=== PATIENT | male | born 1940 | race Asian ===

== ENCOUNTER 2023-08-18 15:20 | Inpatient (IN) | payer MEDICARE, OTHER ==
[~2023-08-18] VITALS: Ht 167.6 cm; Wt 51.9 kg
[2023-08-18] MEDS ORDERED: ALBU0.63 IH (15:44)
[2023-08-18] MEDS ORDERED: ATOR10TA PO (15:44)
[2023-08-18] MEDS ORDERED: AMIO200T5 PO (15:44)
[2023-08-18] MEDS ORDERED: CARV3.12 PO (15:44)
[2023-08-18] MEDS ORDERED: FURO-152 PO (15:44)
[2023-08-18] MEDS ORDERED: APIX5TAB4 PO (15:44)
[2023-08-18] MEDS ORDERED: CHOLECALCIFEROL 1,000 UNIT TABLET ONE (16:12)
[2023-08-18] MEDS ORDERED: CEFTRIAXONE /D5W 50ML IVPB **ER PYXIS IV ONE (16:12)
[2023-08-18 16:23] LABS: EOSINOPHILS # (AUTO) 2.9 K/uL (0.0-0.7); HEMATOCRIT 42.3 % (36.7-47.1); HEMOGLOBIN 13.4 g/dL (12.5-16.3); LYMPHOCYTES # (AUTO) 1.1 K/uL (0.8-4.8); LYMPHOCYTES % (AUTO) 10.6 % (20.5-51.5); MEAN CORPUSCULAR HEMOGLOBIN 23.4 uug (23.8-33.4); MEAN CORPUSCULAR HGB CONC 32 g/dL (32.5-36.3); MEAN CORPUSCULAR VOLUME 74.2 fL (73.0-96.2); MONOCYTES # (AUTO) 0.1 K/uL (0.1-1.30); MONOCYTES % (AUTO) 0.9 % (0.0-11.0); NEUTROPHILS # (AUTO) 6.1 K/uL (1.8-8.9); NEUTROPHILS % (AUTO) 59.8 % (38.5-71.5); PLATELET COUNT (AUTO) 125 K/uL (152-348); RED CELL DISTRIBUTION WIDTH 14.2 % (12.1-16.2); WHITE BLOOD COUNT (AUTO) 10.2 K/uL (3.6-10.2)
[2023-08-18] MEDS: CHOLECALCIFEROL 1,000 UNIT TABLET PO SCH (16:23)
[2023-08-18] MEDS: IV NORMAL SALINE 1000 ML BAG IV ONE (16:24)
[2023-08-18] MEDS: CEFTRIAXONE 1 G in IV DEXTROSE 5% 50 ML IV ONE (16:24)
[2023-08-18 16:31] LABS: CALCIUM 8.4 mg/dL (8.5-10.1); CARBON DIOXIDE 20 mmol/L (21-32); CHLORIDE 103 mmol/L (98-107); CREATININE 1.8 mg/dL (0.6-1.3); GLUCOSE 132 mg/dL (74-106); SODIUM SERUM 137 mmol/L (136-145); UREA NITROGEN, BLOOD 38 mg/dL (7-18)
[2023-08-18 16:32] LABS: POTASSIUM 4.6 mmol/L (3.5-5.1)
[2023-08-18 16:44] LABS: ALANINE AMINOTRANSFERASE 74 U/L (16-63); ALBUMIN 3.2 g/dL (3.4-5.0); ALKALINE PHOSPHATASE 78 U/L (50-136); ASPARTATE AMINOTRANSFERASE 132 U/L (15-37); BILIRUBIN,DIRECT 0.7 mg/dL (0.0-0.2); BILIRUBIN,TOTAL 1.9 mg/dL (0.2-1.0); NT-PRO BNP 12198 pg/mL (0-125); TOTAL PROTEIN, SERUM 8.4 g/dL (6.4-8.2)
[2023-08-18 16:52] LABS: DIFFERENTIAL COMMENT 1; EOSINOPHILS % (AUTO) 28.7 % (0.0-7.0)
[2023-08-18 16:54] LABS: LACTIC ACID 2.1 mmol/L (0.4-2.0)
[2023-08-18] MEDS ORDERED: ASPIRIN 81 MG TAB.CHEW ONE (17:41)
[2023-08-18] MEDS: ASPIRIN 81 MG TAB.CHEW PO ONE (18:03)
[2023-08-18 18:10] LABS: *BILIRUBIN,URIN NEGATIVE (NEGATIVE); *BLOOD, URINE 2+ (NEGATIVE); *CLARITY,URINE CLEAR (CLEAR); *COLOR,URINE YELLOW (YELLOW); *KETONES,URINE NEGATIVE (NEGATIVE); *PROTEIN,URINE 2+ (NEGATIVE); LEUKOCYTE ESTERASE ,URINE NEGATIVE (NEGATIVE); NITRITE, URINE NEGATIVE (NEGATIVE); PH,URINE 5.5 (5.0-8.0); UGLUCOSE NEGATIVE (NEGATIVE)
[2023-08-18 18:14] LABS: WBC,URINE 0-3 /HPF (0-3)
[2023-08-18] MEDS ORDERED: ONDANSETRON 4 MG/2 ML VIAL IV PRN (18:15)
[2023-08-18] MEDS ORDERED: REMEDY ESSENTIAL ZINC PASTE 113 GM TP PRN (18:15)
[2023-08-18] MEDS ORDERED: AZITHROMYCIN 500MG/ D5W 250ML IVPB **ER PYXIS ONLY IV ONE (18:17)
[2023-08-18] MEDS: AZITHROMYCIN IV 500 MG in IV DEXTROSE 5% 250 ML IV ONE (18:34)
[2023-08-18] MEDS: IV NS 1000 ML 1,000 ML IV PRN (22:45)
[2023-08-18] MEDS: PANTOPRAZOLE SODIUM 40 MG VIAL IV SCH (22:46)
[2023-08-18] MEDS: ENOXAPARIN SODIUM 30 MG/0.3 ML DISP.SYRIN SQ SCH (22:46)
[2023-08-18 22:53] VITALS: BP 106/55; TEMP 97.4; O2SAT 96
[2023-08-19] VITALS: BP 121/62; TEMP 98.1; O2SAT 95
[2023-08-19] MEDS: ACETAMINOPHEN 325 MG TABLET PO PRN (03:53)
[2023-08-19 04:16] VITALS: BP 105/56; TEMP 99.4; O2SAT 95
[2023-08-19 07:08] LABS: BASOPHILS % (AUTO) 0.2 % (0.0-2.0); HEMOGLOBIN 12.6 g/dL (12.5-16.3); LYMPHOCYTES # (AUTO) 0.8 K/uL (0.8-4.8); LYMPHOCYTES % (AUTO) 11.5 % (20.5-51.5); MEAN CORPUSCULAR HEMOGLOBIN 23.9 uug (23.8-33.4); MEAN CORPUSCULAR HGB CONC 32 g/dL (32.5-36.3); MEAN CORPUSCULAR VOLUME 74.3 fL (73.0-96.2); MONOCYTES # (AUTO) 0.6 K/uL (0.1-1.30); NEUTROPHILS # (AUTO) 5.7 K/uL (1.8-8.9); NEUTROPHILS % (AUTO) 79.3 % (38.5-71.5); PLATELET COUNT (AUTO) 116 K/uL (152-348); RED BLOOD CELL COUNT(AUTO) 5.25 MIL/uL (4.06-5.63); RED CELL DISTRIBUTION WIDTH 14.2 % (12.1-16.2); WHITE BLOOD COUNT (AUTO) 7.2 K/uL (3.6-10.2)
[2023-08-19 07:12] LABS: DIFFERENTIAL COMMENT 1
[2023-08-19 07:53] VITALS: BP 99/57; TEMP 98.2; O2SAT 96
[2023-08-19] MEDS: ASPIRIN 81 MG TAB.CHEW PO SCH (08:30)
[2023-08-19 08:50] LABS: ALANINE AMINOTRANSFERASE 71 U/L (16-63); ALBUMIN 2.7 g/dL (3.4-5.0); ALKALINE PHOSPHATASE 63 U/L (50-136); ASPARTATE AMINOTRANSFERASE 118 U/L (15-37); CALCIUM 8.1 mg/dL (8.5-10.1); CARBON DIOXIDE 21 mmol/L (21-32); CHLORIDE 110 mmol/L (98-107); CREATININE 1.6 mg/dL (0.6-1.3); GLUCOSE 95 mg/dL (74-106); NT-PRO BNP 10864 pg/mL (0-125); POTASSIUM 3.6 mmol/L (3.5-5.1); SODIUM SERUM 144 mmol/L (136-145); TOTAL PROTEIN, SERUM 7.2 g/dL (6.4-8.2); UREA NITROGEN, BLOOD 34 mg/dL (7-18)
[2023-08-19 12:00] VITALS: BP 94/48; TEMP 97.6; O2SAT 2
[2023-08-19] MEDS: BUMETANIDE 1 MG/4 ML VIAL IV ONE (14:03)
[2023-08-19] MEDS: CEFTRIAXONE 1 G in IV DEXTROSE 5% 50 ML IV SCH (15:54)
[2023-08-19 16:00] VITALS: BP 100/56; TEMP 99.2; O2SAT 93
[2023-08-19] MEDS: AZITHROMYCIN IV 500 MG in IV DEXTROSE 5% 250 ML IV SCH (16:51)
[2023-08-19 18:15] LABS: *BILIRUBIN,URIN NEGATIVE (NEGATIVE); *BLOOD, URINE 1+ (NEGATIVE); *CLARITY,URINE CLEAR (CLEAR); *COLOR,URINE YELLOW (YELLOW); *KETONES,URINE NEGATIVE (NEGATIVE); *PROTEIN,URINE NEGATIVE (NEGATIVE); *UROBILINOGEN,URINE 0.2 E.U./dl (NORMAL); LEUKOCYTE ESTERASE ,URINE NEGATIVE (NEGATIVE); NITRITE, URINE NEGATIVE (NEGATIVE); PH,URINE 5.5 (5.0-8.0); UGLUCOSE NEGATIVE (NEGATIVE)
[2023-08-19 18:25] LABS: WBC,URINE 0-3 /HPF (0-3)
[2023-08-19 18:28] LABS: *SODIUM RNDM,URINE 28 mmol/L (40-220); *URINE TOTAL PROTEIN RANDOM < 6.0 mg/dL (<150/24HR)
[2023-08-19 18:29] LABS: *CREATININE,URINE < 13.0 mg/dL (30-125)
[2023-08-19 20:00] VITALS: BP 106/55; TEMP 97.7; O2SAT 95
[2023-08-20] VITALS (8 sets, daily range): BP systolic 94–117; BP diastolic 50–58; TEMP 97.5–98.1; O2SAT 94–99
[2023-08-20] MEDS: PANTOPRAZOLE SODIUM 40 MG TABLET.DR PO SCH (06:08)
[2023-08-20 07:37] LABS: BASOPHILS % (AUTO) 0.5 % (0.0-2.0); EOSINOPHILS % (AUTO) 0.4 % (0.0-7.0); HEMATOCRIT 38.6 % (36.7-47.1); HEMOGLOBIN 12.6 g/dL (12.5-16.3); LYMPHOCYTES # (AUTO) 0.9 K/uL (0.8-4.8); LYMPHOCYTES % (AUTO) 17.9 % (20.5-51.5); MEAN CORPUSCULAR HEMOGLOBIN 23.9 uug (23.8-33.4); MEAN CORPUSCULAR HGB CONC 33 g/dL (32.5-36.3); MEAN CORPUSCULAR VOLUME 73.4 fL (73.0-96.2); MONOCYTES # (AUTO) 0.7 K/uL (0.1-1.30); MONOCYTES % (AUTO) 12.8 % (0.0-11.0); NEUTROPHILS # (AUTO) 3.6 K/uL (1.8-8.9); NEUTROPHILS % (AUTO) 68.4 % (38.5-71.5); PLATELET COUNT (AUTO) 107 K/uL (152-348); RED BLOOD CELL COUNT(AUTO) 5.26 MIL/uL (4.06-5.63); RED CELL DISTRIBUTION WIDTH 14.4 % (12.1-16.2); WHITE BLOOD COUNT (AUTO) 5.3 K/uL (3.6-10.2)
[2023-08-20 07:42] LABS: DIFFERENTIAL COMMENT 1
[2023-08-20 07:50] LABS: ALANINE AMINOTRANSFERASE 64 U/L (16-63); ALBUMIN 2.4 g/dL (3.4-5.0); ALKALINE PHOSPHATASE 59 U/L (50-136); ASPARTATE AMINOTRANSFERASE 99 U/L (15-37); BILIRUBIN,TOTAL 0.8 mg/dL (0.2-1.0); CALCIUM 7.6 mg/dL (8.5-10.1); CARBON DIOXIDE 24 mmol/L (21-32); CHLORIDE 107 mmol/L (98-107); CREATINE KINASE, TOTAL 650 U/L (39-308); CREATININE 1.6 mg/dL (0.6-1.3); GLUCOSE 110 mg/dL (74-106); MAGNESIUM 2.3 mg/dL (1.8-2.4); PHOSPHOROUS 2.8 mg/dL (2.5-4.9); POTASSIUM 2.9 mmol/L (3.5-5.1); SODIUM SERUM 142 mmol/L (136-145); TOTAL PROTEIN, SERUM 6.7 g/dL (6.4-8.2); UREA NITROGEN, BLOOD 39 mg/dL (7-18)
[2023-08-20] MEDS: ENSURE ENLIVE (VAN) 240 ML LIQUID PO SCH (09:16)
[2023-08-20 10:42] LABS: EOSINOPHILS % (MANUAL) 1 % (0-8); LYMPHOCYTES % (MANUAL) 20 % (20-40); MONOCYTES % (MANUAL) 11 % (2-10); NEUTROPHILS % (MANUAL) 68 % (42-75); PLATELET ESTIMATE DECREASED
[2023-08-20 10:43] LABS: ANISOCYTOSIS 1+; OVALOCYTES 1+
[2023-08-20] MEDS: POTASSIUM CHLORIDE 50 ML IV SCH (12:21)
[2023-08-21] VITALS (7 sets, daily range): BP systolic 115–140; BP diastolic 60–73; TEMP 97.4–97.9; O2SAT 94–100
[2023-08-21 08:06] LABS: PTH, INTACT 29 pg/mL (15-65)
[2023-08-21 08:25] LABS: BASOPHILS % (AUTO) 0.6 % (0.0-2.0); EOSINOPHILS # (AUTO) 0.1 K/uL (0.0-0.7); EOSINOPHILS % (AUTO) 1.4 % (0.0-7.0); HEMATOCRIT 36.4 % (36.7-47.1); HEMOGLOBIN 11.8 g/dL (12.5-16.3); LYMPHOCYTES # (AUTO) 1.1 K/uL (0.8-4.8); LYMPHOCYTES % (AUTO) 21.4 % (20.5-51.5); MEAN CORPUSCULAR HEMOGLOBIN 23.8 uug (23.8-33.4); MEAN CORPUSCULAR HGB CONC 32 g/dL (32.5-36.3); MEAN CORPUSCULAR VOLUME 73.7 fL (73.0-96.2); MONOCYTES # (AUTO) 0.6 K/uL (0.1-1.30); MONOCYTES % (AUTO) 11.9 % (0.0-11.0); NEUTROPHILS # (AUTO) 3.4 K/uL (1.8-8.9); NEUTROPHILS % (AUTO) 64.7 % (38.5-71.5); PLATELET COUNT (AUTO) 107 K/uL (152-348); RED BLOOD CELL COUNT(AUTO) 4.93 MIL/uL (4.06-5.63); RED CELL DISTRIBUTION WIDTH 14.2 % (12.1-16.2); WHITE BLOOD COUNT (AUTO) 5.2 K/uL (3.6-10.2)
[2023-08-21 08:26] LABS: CALCIUM 7.7 mg/dL (8.5-10.1); CREATININE 1.1 mg/dL (0.6-1.3); POTASSIUM 3.5 mmol/L (3.5-5.1)
[2023-08-21 08:34] LABS: ALBUMIN 2.3 g/dL (3.4-5.0); BILIRUBIN,TOTAL 0.5 mg/dL (0.2-1.0); MAGNESIUM 2.2 mg/dL (1.8-2.4); TOTAL PROTEIN, SERUM 6.4 g/dL (6.4-8.2)
[2023-08-21] MEDS: POTASSIUM CHLORIDE 20 MEQ POWDER PACKET GT ONE (09:05)
[2023-08-21] MEDS ORDERED: BISACODYL 10 MG SUPP.RECT RC PRN (10:30)
[2023-08-21] MEDS: LACTULOSE 20 G/30 ML LIQUID UDC PO ONE (11:20)
[2023-08-21 12:06] LABS: A/G RATIO 0.7 (0.7-1.7); ALBUMIN 2.4 g/dL (2.9-4.4); ALPHA-1-GLOBULIN 0.4 g/dL (0.0-0.4); ALPHA-2-GLOBULIN 0.9 g/dL (0.4-1.0); BETA GLOBULIN 0.8 g/dL (0.7-1.3); GAMMA GLOBULIN 1.3 g/dL (0.4-1.8); GLOBULIN, TOTAL 3.4 g/dL (2.2-3.9); M-SPIKE Not Observed g/dL (Not Observed)
[2023-08-22 01:27] VITALS: O2SAT 97
[2023-08-22 06:00] VITALS: BP_SYST 138; TEMP 97.6; O2SAT 96
[2023-08-22 08:00] VITALS: BP 142/65; TEMP 98.4; O2SAT 98
[2023-08-22 11:49] VITALS: BP 137/69; TEMP 97.6; O2SAT 96
[2023-08-22] MEDS: QUETIAPINE FUMARATE 25 MG TABLET PO PRN (11:58)
[2023-08-22 12:49] VITALS: O2SAT 97
[2023-08-22] MEDS: DOXYCYCLINE HYCLATE 100 MG TABLET PO SCH (12:53)
[2023-08-22 16:10] VITALS: BP 162/77; TEMP 97.5; O2SAT 97
[2023-08-22] MEDS: QUETIAPINE FUMARATE 25 MG TABLET PO SCH (23:23)
[2023-08-23 05:05] VITALS: O2SAT 97
[2023-08-23 05:40] VITALS: BP 141/63; TEMP 97.6; O2SAT 97
[2023-08-23 06:28] LABS: BASOPHILS # (AUTO) 0.1 K/UL (0.0-0.2); BASOPHILS % (AUTO) 0.9 % (0.0-2.0); EOSINOPHILS # (AUTO) 0.1 K/uL (0.0-0.7); EOSINOPHILS % (AUTO) 1.3 % (0.0-7.0); HEMATOCRIT 34.7 % (36.7-47.1); HEMOGLOBIN 11.5 g/dL (12.5-16.3); LYMPHOCYTES # (AUTO) 1.1 K/uL (0.8-4.8); LYMPHOCYTES % (AUTO) 18.1 % (20.5-51.5); MEAN CORPUSCULAR HGB CONC 33 g/dL (32.5-36.3); MEAN CORPUSCULAR VOLUME 72.8 fL (73.0-96.2); MONOCYTES # (AUTO) 0.7 K/uL (0.1-1.30); MONOCYTES % (AUTO) 11.6 % (0.0-11.0); NEUTROPHILS # (AUTO) 4.1 K/uL (1.8-8.9); NEUTROPHILS % (AUTO) 68.1 % (38.5-71.5); PLATELET COUNT (AUTO) 154 K/uL (152-348); RED BLOOD CELL COUNT(AUTO) 4.77 MIL/uL (4.06-5.63); RED CELL DISTRIBUTION WIDTH 14.3 % (12.1-16.2)
[2023-08-23 06:46] LABS: DIFFERENTIAL COMMENT 1
[2023-08-23 07:03] LABS: CALCIUM 8.1 mg/dL (8.5-10.1); MAGNESIUM 2.2 mg/dL (1.8-2.4); PHOSPHOROUS 2.7 mg/dL (2.5-4.9); POTASSIUM 3.3 mmol/L (3.5-5.1)
[2023-08-23] MEDS ORDERED: POTASSIUM CHLORIDE 50 ML IV SCH (07:45)
[2023-08-23 08:00] VITALS: BP 157/66; TEMP 97.2; O2SAT 97
[2023-08-23] MEDS: POTASSIUM CHLORIDE 20 MEQ POWDER PACKET GT ONE (08:03)
[2023-08-23] MEDS: POTASSIUM CHLORIDE 10 MEQ, LIDOCAINE-MPF 1% 1 ML in IV DEXTROSE 5% 100 ML IV SCH (08:39)
[2023-08-23] MEDS ORDERED: QUET50TA PO (09:28)
[2023-08-23] MEDS ORDERED: CEFT1VIA15 IV (09:28)
[2023-08-23] MEDS ORDERED: DOXY-326 PO (09:28)
[2023-08-23] MEDS ORDERED: LORAZEPAM 1 MG TABLET PO ONE (09:30)
[2023-08-23 09:44] LABS: LYMPHOCYTES % (MANUAL) 18 % (20-40); MONOCYTES % (MANUAL) 10 % (2-10); NEUTROPHILS % (MANUAL) 72 % (42-75)
[2023-08-23 09:45] LABS: ANISOCYTOSIS 1+; PLATELET ESTIMATE ADEQUATE
[2023-08-23 09:46] LABS: HYPOCHROMASIA 1+; OVALOCYTES 1+
[2023-08-23 12:01] VITALS: BP 102/50; TEMP 97.2; O2SAT 97
[2023-08-23 16:00] VITALS: BP 116/68; TEMP 97.6; O2SAT 97
== END 2023-08-23 16:45 | DRG 682 ==
LOC: ER 15:21 → TELE3 22:03 → MEDSURG3 08-20 09:09
PROVIDERS: ADMIT Internal Medicine; ATTEND Nurse Practitioner Acute Care
DX: N17.9 Acute kidney failure, unspecified (principal); G93.41 Metabolic encephalopathy; J15.9 Unspecified bacterial pneumonia; I21.A1 Myocardial infarction type 2; I50.43 Acute on chronic combined systolic (congestive) and diastolic (congestive) heart failure; E87.20 Acidosis, unspecified; J44.0 Chronic obstructive pulmonary disease with (acute) lower respiratory infection; I42.9 Cardiomyopathy, unspecified; E46 Unspecified protein-calorie malnutrition; Z68.1 Body mass index [BMI] 19.9 or less, adult; R64 Cachexia; E87.6 Hypokalemia; F29 Unspecified psychosis not due to a substance or known physiological condition; E86.0 Dehydration; I11.0 Hypertensive heart disease with heart failure; E83.51 Hypocalcemia; E78.5 Hyperlipidemia, unspecified; Z95.0 Presence of cardiac pacemaker; Z79.899 Other long term (current) drug therapy; Z79.01 Long term (current) use of anticoagulants; K59.00 Constipation, unspecified; D69.6 Thrombocytopenia, unspecified; E11.9 Type 2 diabetes mellitus without complications; I48.91 Unspecified atrial fibrillation; E86.1 Hypovolemia; R30.0 Dysuria; R35.0 Frequency of micturition; R74.01 Elevation of levels of liver transaminase levels
CPT/HCPCS: 36415; 70030-TC; 71045; 76770; 83605; 83735; 83970; 84100; 84155; 84165; 84300; 84484; 85025; 85730; 87040; 93005; 93307; 94760; A4606; A4663; A6213; C1758; C9113; G0378; J0456; J0696; J1650; J2001; J3480; J3490; J7040; J7050